=== PATIENT | female | born 1975 | race Caucasian/White ===

== ENCOUNTER 2019-04-19 14:05 | Emergency (ER) | payer OTHER ==
[~2019-04-19] VITALS: Ht 157.4 cm; Wt 72.6 kg
--- NOTE | ~2019-04-19 | EKG ---
[place], [place] ELECTROCARDIOGRAM REPORT NAME: ALEX UGARTE UNIT #: [id number] ROOM: DOCTOR: EPIPHANY DRAFT REPORT BIRTHDATE: [birth year] [facility] Test Date: 2019-04-19 Test Time: 17:09:18 Pat Name: ALEX UGARTE Department: Room: Gender: F Fruit Thinner: Balbina Monique : 1975 Requested By: PAGE GUO Order Number: [id number] Reading MD: Deyvi Resendiz MD Measurements Intervals [place] Rate: 67 P: 22 ME: 158 QRS: 6 QRSD: 75 T: 0 QT: 378 QTc: 399 Interpretive Statements Sinus rhythm Abnormal R-wave progression, early transition Nonspecific T abnormalities No previous ECG available for comparison Electronically Signed On 04-20-2019 4:42:55 PDT by Deyvi Resendiz MD CM:EKGRPT:ELECTROCARDIOGRAM REPORT 1709 [id number] PAGE GUO MD EPIPHANY DRAFT REPORT PAGE GUO MD
--- NOTE | ~2019-04-19 | EKG ---
[place], [place] ELECTROCARDIOGRAM REPORT NAME: ALEX UGARTE UNIT #: [id number] ROOM: DOCTOR: MYRNA DRAFT REPORT BIRTHDATE: [birth year] [facility] Test Date: 2019-04-19 Test Time: 14:11:59 Pat Name: ALEX UGATRE Department: Patient ID: ELOH- Room: Gender: F Academic Support Assistant: : 1975 Requested By: PAGE GUO Order Number: [id number] Reading MD: Measurements Intervals [place] Rate: 88 P: 35 ND: 169 QRS: 25 QRSD: 155 T: 26 QT: 338 QTc: 409 Interpretive Statements Sinus rhythm Nonspecific intraventricular conduction delay No previous ECG available for comparison CM:EKGRPT:ELECTROCARDIOGRAM REPORT 1411 [id number] PAGE NORRIS DRAFT REPORT PAGE GUO MD
--- NOTE | ~2019-04-19 | EKG ---
[place], [place] ELECTROCARDIOGRAM REPORT NAME: ALEX UGARTE UNIT #: [id number] ROOM: DOCTOR: EPIPHANY DRAFT REPORT BIRTHDATE: [birth year] [facility] Test Date: 2019-04-19 Test Time: 14:11:59 Pat Name: ALEX UGARTE Department: Room: Gender: F Content Development Manager: Balbina Monique : 1975 Requested By: PAGE GUO Order Number: [id number] Reading MD: Deyvi Resendiz MD Measurements Intervals [place] Rate: 88 P: 35 AR: 169 QRS: 25 QRSD: 74 T: 26 QT: 338 QTc: 409 Interpretive Statements Sinus rhythm No previous ECG available for comparison Electronically Signed On 04-20-2019 4:31:04 PDT by Deyvi Resendiz MD CM:EKGRPT:ELECTROCARDIOGRAM REPORT 1411 0431 PAGE NORRIS DRAFT REPORT PAGE GUO MD
[2019-04-19 15:10] LABS: BASO % 0.6 % (0.0-1.0); EOS # 0.1 10*3/uL (0.0-0.4); EOS % 0.7 % (1.0-4.0); HEMOGLOBIN 13.3 g/dl (12.0-16.0); LYMPH # 2.9 10*3/uL (1.3-4.4); LYMPH % 40.3 % (27.0-41.0); MEAN CELL VOLUME 90.7 fl (81.0-99.0); MEAN CORPUSCULAR HGB 29.4 pg (27.0-31.0); MEAN CORPUSCULAR HGB CONC 32.4 g/dl (33.0-37.0); MEAN PLATELET VOLUME 9.9 fl (9.6-12.3); MONO # 0.4 10*3/uL (0.1-1.0); MONO % 5.9 % (3.0-9.0); NEUT # 3.7 10*3/uL (2.3-7.9); NEUT % 52.4 % (47.0-73.0); PLATELET COUNT AUTOMATED 348 10*3/uL (130-400); RED BLOOD COUNT 4.52 10*6/uL (4.10-5.10); RED CELL DISTRI WIDTH 12.6 % (0-14.5); WHITE BLOOD COUNT 7.1 10*3/uL (4.8-10.8)
[2019-04-19 15:23] LABS: ACT PARTIAL THROMBO TIME 25.5 SECONDS (20.0-32.1); INTERNATIONAL NORM RATIO 0.9 (2.0-3.5)
[2019-04-19 15:27] LABS: ALBUMIN 3.7 gm/dl (3.1-4.5); BUN 10 mg/dl (7-24); CHLORIDE 109 mmol/L (98-107); CREATININE 0.79 mg/dL (0.55-1.02); POTASSIUM 3.4 mmol/L (3.5-5.1); SGOT/AST 10 IU/L (3-35); SGPT/ALT 16 U/L (12-78); SODIUM 139 mmol/L (136-145); TOTAL PROTEIN 7.7 gm/dL (6.4-8.2)
[2019-04-19 15:30] LABS: ALKALINE PHOSPHATASE 89 U/L (45-117)
[2019-04-19 15:31] LABS: TROPONIN I < 0.015 ng/ml (<0.045)
== END 2019-04-19 17:46 | disposition home or self-care (01) ==
LOC: ED 14:05
PROVIDERS: Emergency Medicine
DX: R07.89 Other chest pain (principal); R06.02 Shortness of breath; R42 Dizziness and giddiness; R11.0 Nausea; K21.9 Gastro-esophageal reflux disease without esophagitis; F41.9 Anxiety disorder, unspecified; Z88.8 Allergy status to other drugs, medicaments and biological substances